=== PATIENT | male | born 1985 | race Caucasian/White ===

== ENCOUNTER 2016-12-28 05:48 | Emergency (ER) | payer SELFPAY ==
[2016-12-28] MEDS ORDERED: KETOROLAC 30 MG/1 ML SDV IM ONE (07:16)
[2016-12-28] MEDS ORDERED: CYCLOBENZAPRINE 10 MG TAB PO ONE (07:16)
--- NOTE | 2016-12-28 07:21 | EDPHY ---
H & P Time Seen by Provider: 12/28/16 06:53 HPI/ROS: HPI Neck pain. 31-year-old male by private vehicle with his . This patient reports that he woke up this morning with right lateral neck pain extending down into the mid body of his trapezius muscle on the right side. He reports difficulty turning his head to the right. He denies any history of trauma. He reports that he thinks he slept on his pillow with his head turned an awkward way last night. He has not had this pain before. 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 He is asking for a note for work as well. He denies any loss of sensation or weakness in his extremities. He has not had a fever. He denies any radiation of the pain. ROS: Constitutional: No fever, no chills. No weakness. ENT: No sore throat. No nasal congestion or rhinorrhea. Respiratory: No cough. No shortness of breath. Cardiac: No chest pain, no palpitations. Gastrointestinal: No abdominal pain, no vomiting, no diarrhea. Musculoskeletal: No back pain. As above. No myalgias or arthralgias. Skin: No rashes. Neurological: No headache. No focal weakness or altered sensation. Past medical history: Denies any significant past medical history. Social history: Drinks alcohol socially. Here with his significant other. Physical Exam: General Appearance: Alert, no distress. This patient is responding to questions appropriately and in full sentences. This patient appears well- hydrated and well-nourished. Eyes: Pupils equal and round no pallor or injection. No lid edema, erythema or injection. ENT, Mouth: Mucous membranes are moist. The pharyngeal tissues are unremarkable. No edema or swelling. No asymmetry suggestive of abscess. No erythema or exudates. Right external auditory canal and tympanic membrane are clear and unremarkable on exam. Neck and upper back: No midline cervical, thoracic tenderness on palpation. He has vague tenderness on palpation of the soft paraspinal tissues posterior lateral aspect of the right neck extending down into the belly of the mid trapezius muscle. He is neurologically intact in all myotomes in dermatomes of the bilateral upper extremities. There is no tenderness on palpation of the suboccipital areas. He is able to flex the neck without significant pain or impingement. No tenderness on palpation of soft tissues of the lateral neck. No bruits auscultated. Neurological: Motor sensory function is grossly intact. Cranial nerves are normal. Gait is normal. Skin: Warm and dry, no rashes. Extremities are symmetrical. All joints range without pain or impingement. Psychiatric: No agitation. No depression. Database: EKG: Imaging: Procedures: Emergency department course: Patient has no contraindications to NSAIDs. No history of renal dysfunction. He will be given 60 mg of IM Toradol and 10 mg of oral Flexeril. Vital signs have been reviewed and are normal. Patient re-evaluated at 8:00 a.m.. Resting comfortably at this time. He reports significant relief in his neck pain from above medications. Plan will be to treat him with Flexeril for the next 2-3 days as well as ibuprofen again starting tonight. He was provided with a note for work excuse. Follow-up and return to emergency department precautions have been discussed with him. All of his questions were answered. He was discharged in good condition with his significant other. She is driving. Differential Diagnosis: The differential diagnosis on this patient includes but is not limited to spasmodic torticollis, cervical strain, trapezius muscle spasming. Cervical spine fracture/subluxation/dislocation, meningitis, encephalitis, vertebral artery dissection, carotid artery dissection unlikely. This represents a partial list of diagnoses considered. These considerations are based on history , physical exam, past history, reassessment and diagnostic testing. Smoking Status: Never smoked Constitutional: Initial Vital Signs Heart Rate 54 L 12/28/16 05:56 Respiratory Rate 16 12/28/16 05:56 Blood Pressure 134/95 H 12/28/16 05:56 O2 Sat (%) 98 12/28/16 05:56 O2 Delivery Mode Room Air Allergies/Adverse Reactions: No Known Allergies Allergy (Unverified 12/28/16 06:01) Home Medications: Medication Instructions Recorded Cyclobenzaprine [Flexeril 10 MG 10 mg PO TID #9 tab 12/28/16 (*)] Medical Decision Making - Data Points Medications Given: Discontinued Medications Hydrocodone Bitart/Acetaminophen ([place] 5/325) 2 tab PO EDNOW ONE Stop: 12/28/16 07:57 Last Admin: 12/28/16 08:00 Dose: 2 tab Cyclobenzaprine HCl (Flexeril) 10 mg PO EDNOW ONE Stop: 12/28/16 07:17 Last Admin: 12/28/16 07:24 Dose: 10 mg Ketorolac Tromethamine (Toradol) 60 mg IM EDNOW ONE Stop: 12/28/16 07:17 Last Admin: 12/28/16 07:25 Dose: 60 mg Departure - Departure Disposition: Home, Routine, Self-Care Clinical Impression: Cervical strain, acute, Spasmodic torticollis Condition: Good Instructions: Cervical Strain (ED), Spasmodic Torticollis (ED) Additional Instructions: Read and follow provided instructions. Follow-up with your primary care physician in 1-2 days for re-evaluation. Take medication as prescribed. Resume taking ibuprofen tonight after 7:00 p.m. Ibuprofen dosin mg every 6 hours with meals for the next 3 days only. Take only as needed for pain Return to the emergency department for worsening pain, loss of sensation or weakness in her extremities, fever or other serious concerns. Avoid any activity which exacerbates worsens your pain. Referrals: NONE *PRIMARY CARE P,. [Primary Care Provider] - As per Instructions Stand Alone Forms: Work Excuse Prescriptions: Cyclobenzaprine [Flexeril 10 MG (*)] 10 mg PO TID #9 tab
[2016-12-28] MEDS ORDERED: HYDROCODONE/APAP 5/325 TAB PO ONE (07:56)
[2016-12-28 08:13] VITALS: BP 136/95; PULSE 51; RESP 18; TEMP 97.7; O2SAT 97
== END 2016-12-28 08:13 | disposition home or self-care (01) ==
DX: S16.1XXA Strain of muscle, fascia and tendon at neck level, initial encounter (principal); M43.6 Torticollis; X58.XXXA Exposure to other specified factors, initial encounter
CPT/HCPCS: J1885